=== PATIENT | female | born 2000 | race Caucasian/White ===

== ENCOUNTER 2023-01-23 14:50 | Emergency (ER) | payer BC, SELFPAY ==
[2023-01-23] VITALS (7 sets, daily range): BP systolic 124–155; BP diastolic 77–96; PULSE 63–67
[2023-01-23 15:42] LABS: % Basophils 0.1 % (0-2); % Immature Granulocytes 0.3 % (0-0.5); % Lymphocytes 43.4 % (20.5-51.1); % Monocytes 7.5 % (1.7-9.3); % Neutrophils 48.7 % (42.2-75.2); Absolute Monocytes 0.5 10^3/uL (0.1-0.6); Absolute Neutrophils 3.4 10^3/uL (1.4-6.5); Hematocrit 41.5 % (37.0-47.0); Hemoglobin 13.9 g/dL (12.0-16.0); Mean Corp Hgb Conc. 33.5 g/dL (33.0-37.0); Mean Corpuscular Volume 89.4 fL (81.0-99.0); Mean Platelet Volume 8.4 fL (7.4-10.4); Nucleated Red Blood Cells % 0 %; Platelet Count 330 10^3/uL (130-400); Red Blood Cell Count 4.64 10^6/uL (4.20-5.40); Red Cell Dist. Width 13.7 % (11.5-14.5); White Blood Cell Count 6.9 10^3/uL (4.8-10.8)
--- NOTE | 2023-01-23 15:55 | ED.GENMED ---
History of Present Illness
General
Chief Complaint: Heart Rate Problem
Source: patient
Time Seen by Provider: 01/23/23 15:25
Travel History
Have you had any contact with someone who has COVID-19?: No
Do you have any symptoms of coronavirus? Fever > 100 degrees, chills, cough, shortness of breath, sore throat, loss of taste or smell, muscle aches, or headache?: No
History of Present Illness
History of Present Illness:
22-year-old female with past medical history of depression presenting to the emergency department for evaluation of feeling fatigued, generally unwell, 1 syncopal episode over the weekend and some palpitations. Patient notes that she is currently
tapering off of Effexor which she started about 4 to 6 weeks ago and attempting to go back on the Wellbutrin she had been on prior to this. Patient notes a couple of other medications but notes that no dosage or frequency changes have happened
recently. Currently still feeling the palpitations somewhat but otherwise denies any chest pain, shortness of breath, diaphoresis, exertional dyspnea, cough, fevers or any other concerns.
Past History
Past History
ED Past Medical History: Asthma and Psychiatric
ED Past Surgical History: None
Social History
Tobacco: Non-smoker
Alcohol: None
Drug: None
Personal: Single
Living: with family
Review of Systems
Review of Systems
All Other Systems: ROS reviewed and negative except as documented in HPI and ROS
Phy Exam
Physical Exam
Physical Exam:
GENERAL: Alert , in no apparent distress
EYE: conjunctiva clear
NECK: Supple, no significant adenopathy.
ENT: o/p clr, mmm.
CARDIAC: Regular rate and rhythm
LUNGS: Clear breath sounds bilaterally, no acute respiratory distress, no wheezes/rales/rhonchi
NEUROLOGICAL: Alert and oriented
SKIN: Warm and dry, skin intact.
MUSCULOSKELETAL: well perfused.
PSYCH: Normal and appropriate interaction.
Scores
Heart Failure Risk
Heart Failure Risk Score: Not Applicable
Heart Score for Chest Pain Patients
STEMI patient?: Not applicable
Withdrawal Assessment of Alcohol
Withdrawal Assessment Completed?: Not applicable
Course
Orders/Labs/Results
Orders:
Orders
01/23/23 14:57
ECG [Electrocardiogram (*1)] Urgent
Reason for Study: Other
Other Reason for Exam: palpatations
EKG- Treatment ONCE
01/23/23 15:33
Complete Blood Count/With Diff Urgent
Comprehensive Metabolic Panel Urgent
Troponin I Urgent
01/23/23 15:37
Orthostatic VS- Treatment ONCE
01/23/23 15:33
01/23/23 15:33
Vital Signs
Initial and Last Documented VS:
Initial Vital Signs
Temp Pulse Resp BP Pulse Ox
98.4 F 77 18 155/96 99
01/23/23 14:54 01/23/23 14:54 01/23/23 14:54 01/23/23 14:54 01/23/23 14:54
Last Documented Vital Signs
Temp Pulse Resp BP Pulse Ox
98.7 F 68 20 135/91 100
01/23/23 16:57 01/23/23 16:51 01/23/23 16:51 01/23/23 16:51 01/23/23 16:51
MDM/Problems Addressed
Differential Diagnosis Includes:
Medication interaction, electrolyte disturbance, less concern for cardiac dysrhythmia, orthostasis
MDM/Problems Addressed:
22-year-old female presenting the emergency department with palpitations, had a syncopal event over the weekend and also noting some generalized weakness. I suspect recent transition from Wellbutrin to Effexor and now tapering off the Effexor is
likely cause for the symptoms. We will check labs to rule out any significant electrolyte disturbance. Will check orthostatics as well. Anticipate discharge home following
*Pulse Oximetry
Patient hypoxic: no
*EKG
Interpreted by ED Provider?: Yes
Interpretation: normal
Comparison EKG: no comparison EKG present
Heart Rate: 68
Rate: normal
Rhythm: sinus
Ischemia: no ischemia
*Critical Care Note
Total Time (30-74mins, 75-104mins- exclusive of procedures): Not Applicable
Patient Management
Escalation/DeEscalation of care consider admission/obs:
Patient heart rate remains in a normal sinus rhythm at normal rate. Lab work is unremarkable. Advise close follow-up with primary care physician. Patient aware of return precautions and follow-up recommendations. Stable for discharge home.
ED Attending Note
-
Portions of this chart may have been created with voice recognition software.� Occasional wrong word or��sound alike� substitutions may have occurred due to the inherent limitations of voice recognition software.
Discharge Plan
Departure
Patient Disposition: Home (Routine Discharge)
Date of Disposition: 01/23/23
Time of Disposition: 16:29
Patient with high blood pressure during this ER visit?: Yes
Discharge Problem:
Medication side effects
Instructions: Palpitations (DC)
Prescriptions:
No Action
omeprazole magnesium [Prilosec OTC] 20 MG tablet,delayed release (DR/EC)
20 mg PO DAILY
budesonide-formoterol [Symbicort] 1 PUFF HFA aerosol inhaler
2 puff inhalation DAILY
epinephrine [EpiPen Jr] 0.15 MG/0.3/SYRINGE auto-injector
0.15 mg IM UD Qty: 2 0RF
medroxyprogesterone 2.5 MG tablet
5 mg PO DAILY
prednisone 50 MG tablet
50 mg PO Daily Qty: 2 0RF
epinephrine [Auvi-Q] 0.3 MG/0.3 ML auto-injector
0.3 mg IJ PRN PRN (Reason: difficulty Breathing) Qty: 2 0RF
Referrals:
Chapito Lepe MD [Non-Admitting Privileges] -
Interventions
Interventions:
*Risk Screen - Suicide Last Done: 01/23/23 14:54
*General Assessment Last Done: 01/23/23 14:54
*Neglect/Abuse Screening Last Done: 01/23/23 14:54
ED- Fall Risk Assessment Last Done: 01/23/23 16:57
*ED COVID-19 Vaccine History Last Done: 01/23/23 16:57
*Nursing Disposition Last Done: 01/23/23 16:57
ED- Cardiac Assessment Last Done: 01/23/23 15:38
ED- Pulmonary Assessment Last Done: 01/23/23 15:38
Discharge Date and Time
Discharge Date/Time: 01/23/23 16:59
[2023-01-23 15:57] LABS: ALT (SGPT) 20 U/L (0-35); AST (SGOT) 27 U/L (14-36); Albumin 4.3 g/dl (3.5-5.0); Alkaline Phosphatase 73 U/L (38-126); Blood Urea Nitrogen 11 mg/dl (7-17); Calcium 9.6 mg/dl (8.4-10.2); Carbon Dioxide 29 mmol/L (22-30); Chloride 103 mmol/L (98-107); Glomerular Filtration Rate > 60.0; Glucose 93 mg/dl (70-99); Potassium 4.4 mmol/L (3.5-5.1); Sodium 139 mmol/L (135-145); Total Bilirubin 0.2 mg/dl (0.2-1.3); Total Protein 7.3 g/dl (6.3-8.2)
[2023-01-23 16:07] LABS: Troponin I < 0.012 ng/ml
== END 2023-01-23 16:59 | disposition home or self-care (01) ==
LOC: EMR 14:50
PROVIDERS: Physician Assistant Medical; EMERGENCY PHYSICIAN Emergency Medicine; FAMILY PHYSICIAN Nurse Practitioner Primary Care
DX: R55 Syncope and collapse (principal); R53.1 Weakness; R00.2 Palpitations; T43.215A Adverse effect of selective serotonin and norepinephrine reuptake inhibitors, initial encounter; Y92.9 Unspecified place or not applicable; J45.909 Unspecified asthma, uncomplicated; F32.A Depression, unspecified
CPT/HCPCS: 99283; 80053; 84484; 85025; 93005

== ENCOUNTER → 2024-07-29 12:09 | Outpatient (REF) | payer BC, SELFPAY | LOC: DHSLP 12:09 | PROVIDERS: ATTENDING PHYSICIAN Internal Medicine Critical Care Medicine; FAMILY PHYSICIAN Nurse Practitioner Primary Care | DX: G47.30 Sleep apnea, unspecified (principal); R06.83 Snoring | CPT/HCPCS: 95800 ==